=== PATIENT | male | born 1995 | race African-American/Black ===

== ENCOUNTER 2023-10-28 20:30 | Emergency (ER) | payer BC, SELFPAY ==
[~2023-10-28] VITALS: Ht 185.4 cm; Wt 73.1 kg
[2023-10-28] MEDS ORDERED: HYDR-643 PO (21:39)
[2023-10-28 22:05] VITALS: BP 124/76; TEMP 98.8; O2SAT 98
== END 2023-10-28 22:09 | disposition home or self-care (01) ==
LOC: M ED 20:30
DX: F34.1 Dysthymic disorder (principal); F10.10 Alcohol abuse, uncomplicated; Z79.899 Other long term (current) drug therapy